=== PATIENT | female | born 1980 | race Caucasian/White ===

== ENCOUNTER 2019-08-30 23:42 | Emergency (ER) | payer SELFPAY ==
[~2019-08-30] VITALS: Ht 172.7 cm; Wt 137.3 kg
[2019-08-30] MEDS ORDERED: AMOXIL500 M1 PO (23:55)
[2019-08-30] MEDS ORDERED: VOLTAREN 75 DR75 MG PO (23:55)
[2019-08-30] MEDS ORDERED: INSULIN HUMA100 U/ML SQ (23:55)
[2019-08-30] MEDS ORDERED: TOUJEO MAX300 UNIT/1 SQ (23:56)
[2019-08-30] MEDS ORDERED: OZEMPIC1 MG/0.75 SQ (23:56)
[2019-08-31 01:06] LABS: EOS # 0.2 (0.04-0.40); EOS % 1.3 % (1.0-5.0); HEMATOCRIT 43.1 % (37.0-47.0); HEMOGLOBIN 14.2 g/dL (12.5-16.0); LYMPH# 2.4 (1.50-4.00); MEAN CELL VOLUME 94 fl (78-100); MEAN CORPUSCULAR HEMOGLOBIN 31 pg (27-31); MEAN CORPUSCULAR HGB CONC 33 g/dL (33-37); MEAN PLATELET VOLUME 9.6 fl (7.4-10.4); MONO # 1.4 (0.20-0.80); PLATELET COUNT 261 K/mm3 (130-400); RED BLOOD COUNT 4.59 M/mm3 (4.10-5.30); RED CELL DISTRIBUTION WIDTH 12.6 % (11.5-14.5); WHITE BLOOD COUNT 15.3 K/mm3 (4.8-10.8)
[2019-08-31 01:07] LABS: NEU # 11.3 (1.40-6.50)
[2019-08-31] MEDS ORDERED: NORCO 325 MG-51 TA1 PO (01:27)
[2019-08-31 01:50] VITALS: BP 177/99
== END 2019-08-31 01:50 | disposition home or self-care (01) ==
LOC: ED 23:42
PROVIDERS: Family Medicine
DX: K04.7 Periapical abscess without sinus (principal); E11.9 Type 2 diabetes mellitus without complications; K50.90 Crohn's disease, unspecified, without complications; Z79.4 Long term (current) use of insulin
CPT/HCPCS: J0696

== ENCOUNTER 2019-08-31 16:52 | Emergency (ER) | payer SELFPAY ==
[~2019-08-31] VITALS: Ht 172.7 cm; Wt 137.3 kg
[~2019-08-31 16:52] MED LIST: AMOXIL500 M1 PO; INSULIN HUMA100 U/ML SQ; NORCO 325 MG-51 TA1 PO; OZEMPIC1 MG/0.75 SQ; TOUJEO MAX300 UNIT/1 SQ; VOLTAREN 75 DR75 MG PO
[2019-08-31 18:02] LABS: EOS # 0.2 (0.04-0.40); EOS % 1.8 % (1.0-5.0); HEMATOCRIT 44.1 % (37.0-47.0); HEMOGLOBIN 14.3 g/dL (12.5-16.0); LYMPH# 1.5 (1.50-4.00); MEAN CELL VOLUME 95 fl (78-100); MEAN CORPUSCULAR HEMOGLOBIN 31 pg (27-31); MEAN CORPUSCULAR HGB CONC 32 g/dL (33-37); MEAN PLATELET VOLUME 9.5 fl (7.4-10.4); MONO # 1.2 (0.20-0.80); NEU # 8.6 (1.40-6.50); PLATELET COUNT 239 K/mm3 (130-400); RED BLOOD COUNT 4.65 M/mm3 (4.10-5.30); RED CELL DISTRIBUTION WIDTH 12.8 % (11.5-14.5); WHITE BLOOD COUNT 11.6 K/mm3 (4.8-10.8)
[2019-08-31 18:16] LABS: TOTAL PROTEIN 6.8 g/dL (6.4-8.3)
[2019-08-31 18:18] LABS: TOTAL BILIRUBIN 0.2 mg/dL (0.2-1.2)
[2019-08-31 20:48] VITALS: BP 145/88
== END 2019-08-31 20:53 | disposition home or self-care (01) ==
LOC: ED 16:52
PROVIDERS: Nurse Practitioner Primary Care
DX: K08.89 Other specified disorders of teeth and supporting structures (principal); K13.79 Other lesions of oral mucosa; E11.9 Type 2 diabetes mellitus without complications; F31.9 Bipolar disorder, unspecified; F43.10 Post-traumatic stress disorder, unspecified; F41.0 Panic disorder [episodic paroxysmal anxiety]; K50.90 Crohn's disease, unspecified, without complications; F17.210 Nicotine dependence, cigarettes, uncomplicated; Z79.4 Long term (current) use of insulin
CPT/HCPCS: A4216; J0696; J1100; J1885; Q9967